=== PATIENT | female | born 1995 | race Caucasian/White ===

== ENCOUNTER 2025-01-18 11:29 | Day surgery (SDC) | payer MEDICAID ==
[~2025-01-18 11:29] MED LIST: Midazolam 1 MG/ML 2 ML SDV ONE; Propofol 200 MG/20 ML SDV ONE; Sodium Chloride 0.9% 10 ML Syringe FLUSH PRN
[2025-01-18] MEDS: Lactated Ringers 1,000 ML IV SCH (12:20)
[2025-01-18] MEDS ORDERED: Propofol 200 MG/20 ML SDV ONE (13:27)
== END 2025-01-18 14:25 | disposition home or self-care (01) ==
LOC: LL.SDS 11:29
PROVIDERS: ATTEND Surgery
DX: K92.1 Melena (principal); F33.1 Major depressive disorder, recurrent, moderate; F41.1 Generalized anxiety disorder; K21.9 Gastro-esophageal reflux disease without esophagitis; Z79.899 Other long term (current) drug therapy
CPT/HCPCS: 45378; J2704; J7120; 00811